=== PATIENT | female | born 1990 | race Caucasian/White ===

== ENCOUNTER 2017-06-14 17:26 | Emergency (ER) | payer OTHER ==
[~2017-06-14] VITALS: Ht 165.1 cm; Wt 93.0 kg
[2017-06-14 18:23] VITALS: BP 180/93; PULSE 90; RESP 17; TEMP 98; O2SAT 100
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
[2017-06-14] MEDS ORDERED: IBUPROFEN 600 MG TAB PO ONE (21:00)
[2017-06-14 21:23] VITALS: BP 190/104; PULSE 82; RESP 16; TEMP 99.2; O2SAT 100
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
[2017-06-14] MEDS ORDERED: CYCL10TA PO (23:17)
[2017-06-14] MEDS ORDERED: IBUP-232 PO (23:17)
== END 2017-06-15 00:07 | disposition home or self-care (01) ==
LOC: NEPD 17:26
DX: M54.2 Cervicalgia (principal); M79.601 Pain in right arm; M79.651 Pain in right thigh; V03.10XA Pedestrian on foot injured in collision with car, pick-up truck or van in traffic accident, initial encounter
CPT/HCPCS: 72125; 84703; 99283; L0120; L0150